=== PATIENT | male | born 1960 | race Caucasian/White ===

== ENCOUNTER → 2017-02-10 | Outpatient (CLI) | payer MEDICARE ==
[~2017-02-10] MED LIST: CYMBALTA 20 MG20 MG PO; ENDOCET 5-3251 EACH PO; FLEXERIL 10 MG10 MG PO; HYDROCHLOROTH12.5 M1 PO; LISINOPRIL20 MG PO; PERCOCET 7.5-31 EACH PO
== END ==
LOC: KOH-I 02-09 08:45
DX: M54.13 Radiculopathy, cervicothoracic region (principal); S42.012A Anterior displaced fracture of sternal end of left clavicle, initial encounter for closed fracture; M47.892 Other spondylosis, cervical region; Z98.890 Other specified postprocedural states
CPT/HCPCS: 72141; 73221

== ENCOUNTER → 2020-09-17 | Outpatient (CLI) | payer MEDICARE, OTHER | LOC: CT 09-09 14:00 | DX: J01.81 Other acute recurrent sinusitis (principal) | CPT/HCPCS: 70486 ==

== ENCOUNTER → 2022-03-30 | Outpatient (CLI) | payer MEDICARE, OTHER | LOC: KOH-I 10:43 | DX: M51.36 Other intervertebral disc degeneration, lumbar region (principal); M51.37 Other intervertebral disc degeneration, lumbosacral region | CPT/HCPCS: 72148 ==